=== PATIENT | female | born 1950 | race Caucasian/White ===

== ENCOUNTER 2019-02-12 14:33 | Emergency (ER) | payer MEDICARE, OTHER ==
[2019-02-12] MEDS ORDERED: Sodium Chloride 0.9% 10 ML Syringe FLUSH PRN (15:38)
[2019-02-12] MEDS ORDERED: Diltiazem 25 MG/5 ML SDV IVPUSH ONE (15:39)
--- NOTE | 2019-02-12 16:46 | EDM.PDOC ---
ED HPI GENERAL MEDICAL PROBLEM - General Chief Complaint: Cardiovascular Problem Stated Complaint: FAST HEART RATE,CHILLS Time Seen by Provider: 02/12/19 14:50 Source of Information: Reports: Patient History Limitations: Reports: No Limitations - History of Present Illness INITIAL COMMENTS - FREE TEXT/NARRATIVE: pt arrived with sustained atrial fib. She had very slight tightness in her chest and in her neck. She was not sob. She is on coumadin. She had a mitral valve replacement and she has had atrial fib on 2 or three occasions. Onset: Today, Other (pt developed the rhythm when she got up this am. ) Duration: Hour(s): Location: Reports: Chest Associated Symptoms: Reports: Shortness of Breath, Other ( slight chest tightness. ) - Related Data Allergies Allergy/AdvReac Type Severity Reaction Status Date / Time No Known Allergies Allergy Verified 02/12/19 14:54 Home Meds: Home Meds Levothyroxine Sodium [Synthroid] 125 mcg PO DAILY 02/12/19 [History] Metoprolol Succinate [Toprol XL 50mg] 50 mg PO BEDTIME 02/12/19 [History] Simvastatin [Zocor] 40 mg PO BEDTIME 02/12/19 [History] Warfarin Sodium 5 mg PO DAILY 02/12/19 [History] Past Medical History Cardiovascular History: Reports: Afib, High Cholesterol, Hypertension [employer] History: Reports: Endocrine/Metabolic History: Reports: Hypothyroidism - Past Surgical History Cardiovascular Surgical History: Reports: Valve Replacement Oncologic Surgical History: Reports: Biopsy of Breast, Lumpectomy Social & Family History - Tobacco Use Smoking Status *Q: Never Smoker - Caffeine Use Caffeine Use: Reports: Coffee - Recreational Drug Use Recreational Drug Use: No ED ROS GENERAL - Review of Systems Review Of Systems: See Below Constitutional: Reports: No Symptoms HEENT: Reports: No Symptoms Respiratory: Reports: Shortness of Breath Cardiovascular: Reports: Palpitations Endocrine: Reports: No Symptoms GI/Abdominal: Reports: No Symptoms : Reports: No Symptoms Musculoskeletal: Reports: No Symptoms Skin: Reports: No Symptoms Neurological: Reports: No Symptoms ED EXAM, GENERAL - Physical Exam Exam: See Below Free Text/Narrative:: pt arrived with history of a rapid heart beat and not feeling well. She had slight tightness in the chest and neck area. Exam Limited By: No Limitations General Appearance: Alert, Mild Distress Ears: Normal TMs Nose: Normal Inspection Throat/Mouth: Normal Inspection Head: Atraumatic Neck: Normal Inspection Respiratory/Chest: No Respiratory Distress Cardiovascular: Irregularly Irregular, Other ( rate was in the 903. ) GI/Abdominal: Soft, Non-Tender (Female) Exam: Deferred Rectal (Female) Exam: Deferred Back Exam: Normal Inspection Extremities: Normal Inspection Neurological: Alert, Oriented, Normal Cognition Psychiatric: Normal Affect Course - Vital Signs Last Recorded V/S: Last Vital Signs Temp 36.2 C 02/12/19 14:53 Pulse 74 02/12/19 17:38 Resp 19 02/12/19 17:38 BP 132/84 02/12/19 17:38 Pulse Ox 97 02/12/19 17:38 - Orders/Labs/Meds Orders: Active Orders 24 hr Category Date Time Status TROPONIN I [CHEM] Stat Lab 02/12/19 18:23 Ordered Diltiazem 125 mg Med 02/12/19 17:15 Active Sodium Chloride 0.9% [Normal Saline] 100 ml IV TITRATE Sodium Chloride 0.9% [Saline Flush] Med 02/12/19 15:38 Active 10 ml FLUSH ASDIRECTED PRN Saline Lock Insert [OM.PC] Routine Oth 02/12/19 15:38 Ordered Medication Orders Diltiazem HCl 125 mg/ Sodium (Chloride) 125 mls @ 5 mls/hr IV TITRATE TRAE; Protocol Stop: 02/13/19 17:16 Sodium Chloride (Saline Flush) 10 ml FLUSH ASDIRECTED PRN PRN Reason: Keep Vein Open Last Admin: 02/12/19 15:49 Dose: 10 ml Labs: Laboratory Tests 02/12/19 02/12/19 02/12/19 Range/Units 15:37 15:37 15:37 WBC 5.6 (4.5-11.0) K/uL RBC 4.89 (3.30-5.50) M/uL Hgb 14.0 (12.0-15.0) g/dL Hct 40.6 (36.0-48.0) % MCV 83 (80-98) fL MCH 29 (27-31) pg MCHC 35 (32-36) % Plt Count 221 (150-400) K/uL Neut % (Auto) 67 H (36-66) % Lymph % (Auto) 24 (24-44) % [place] % (Auto) 9 H (2-6) % Eos % (Auto) 1 L (2-4) % Baso % (Auto) 0 (0-1) % PT (9.5-12.0) sec INR (0.80-1.20) Sodium 142 (140-148) mmol/L Potassium 3.7 (3.6-5.2) mmol/L Chloride 105 (100-108) mmol/L Carbon Dioxide 28 (21-32) mmol/L Anion Gap 9.5 (5.0-14.0) mmol/L BUN 11 (7-18) mg/dL Creatinine 0.8 (0.6-1.0) mg/dL Est Cr Clr Drug Dosing 64.76 mL/min Estimated GFR (MDRD) > 60 (>60) Glucose 132 H (74-106) mg/dL Calcium 9.2 (8.5-10.1) mg/dL Magnesium 2.0 (1.8-2.4) mg/dL Total Bilirubin 1.6 H (0.2-1.0) mg/dL AST 24 (15-37) U/L ALT 30 (12-78) U/L Alkaline Phosphatase 55 (46-116) U/L Total Protein 7.2 (6.4-8.2) g/dL Albumin 4.0 (3.4-5.0) g/dL Globulin 3.2 (2.3-3.5) g/dL Albumin/Globulin Ratio 1.3 (1.2-2.2) TSH, Ultra Sensitive 0.588 (0.358-3.740) uIU/mL Urine Color (YELLOW) Urine Appearance (CLEAR) Urine pH (5.0-8.0) Ur Specific [place] (1.008-1.030) Urine Protein (NEGATIVE) mg/dL Urine Glucose (UA) (NEGATIVE) mg/dL Urine Ketones (NEGATIVE) mg/dL Urine Occult Blood (NEGATIVE) Urine Nitrite (NEGATIVE) Urine Bilirubin (NEGATIVE) Urine Urobilinogen (0.2-1.0) EU/dL Ur Leukocyte Esterase (NEGATIVE) Urine RBC (0-5) Urine WBC (0-5) Ur Epithelial Cells Amorphous Sediment Urine Bacteria Urine Mucus 02/12/19 02/12/19 Range/Units 17:08 17:11 WBC (4.5-11.0) K/uL RBC (3.30-5.50) M/uL Hgb (12.0-15.0) g/dL Hct (36.0-48.0) % MCV (80-98) fL MCH (27-31) pg MCHC (32-36) % Plt Count (150-400) K/uL Neut % (Auto) (36-66) % Lymph % (Auto) (24-44) % [place] % (Auto) (2-6) % Eos % (Auto) (2-4) % Baso % (Auto) (0-1) % PT 28.1 H (9.5-12.0) sec INR 2.76 H (0.80-1.20) Sodium (140-148) mmol/L Potassium (3.6-5.2) mmol/L Chloride (100-108) mmol/L Carbon Dioxide (21-32) mmol/L Anion Gap (5.0-14.0) mmol/L BUN (7-18) mg/dL Creatinine (0.6-1.0) mg/dL Est Cr Clr Drug Dosing mL/min Estimated GFR (MDRD) (>60) Glucose (74-106) mg/dL Calcium (8.5-10.1) mg/dL Magnesium (1.8-2.4) mg/dL Total Bilirubin (0.2-1.0) mg/dL AST (15-37) U/L ALT (12-78) U/L Alkaline Phosphatase (46-116) U/L Total Protein (6.4-8.2) g/dL Albumin (3.4-5.0) g/dL Globulin (2.3-3.5) g/dL Albumin/Globulin Ratio (1.2-2.2) TSH, Ultra Sensitive (0.358-3.740) uIU/mL Urine Color Yellow (YELLOW) Urine Appearance Clear (CLEAR) Urine pH 7.5 (5.0-8.0) Ur Specific [place] 1.015 (1.008-1.030) Urine Protein Negative (NEGATIVE) mg/dL Urine Glucose (UA) Negative (NEGATIVE) mg/dL Urine Ketones Negative (NEGATIVE) mg/dL Urine Occult Blood Negative (NEGATIVE) Urine Nitrite Negative (NEGATIVE) Urine Bilirubin Negative (NEGATIVE) Urine Urobilinogen 0.2 (0.2-1.0) EU/dL Ur Leukocyte Esterase Negative (NEGATIVE) Urine RBC 0-5 (0-5) Urine WBC 0-5 (0-5) Ur Epithelial Cells Few Amorphous Sediment Not seen Urine Bacteria Few Urine Mucus Not seen Meds: Medications Generic Name Dose Route Start Last Admin Trade Name Freq PRN Reason Stop Dose Admin Diltiazem HCl 125 mg/ Sodium 125 mls @ 5 mls/hr 02/12/19 17:15 Chloride IV 02/13/19 17:16 TITRATE TRAE Protocol 5 MG/HR Sodium Chloride 10 ml 02/12/19 15:38 02/12/19 15:49 Saline Flush FLUSH 10 ml ASDIRECTED PRN Administration Keep Vein Open Discontinued Medications Generic Name Dose Route Start Last Admin Trade Name Freq PRN Reason Stop Dose Admin Diltiazem HCl 10 mg 02/12/19 15:39 02/12/19 15:49 Diltiazem IVPUSH 02/12/19 15:40 10 mg ONETIME ONE Administration - Re-Assessments/Exams Free Text/Narrative Re-Assessment/Exam: 02/12/19 18:21 pt had normal labs. Nelson was given cardizem 10 mg iv and at this point she has converted back to a sinus rhythm. Departure - Departure Time of Disposition: 18:27 Disposition: Home, Self-Care 01 Condition: Fair Clinical Impression: Atrial fibrillation, H/O mitral valve replacement Referrals: Rita Garcia MD [Primary Care Provider] - Forms: ED Department Discharge Care Plan Goals: appt with Dr Garcia in 4-5 days, increae metoprol to 1/2 tab qam and 50mg q hs. - My Orders Last 24 Hours: My Active Orders 02/12/19 15:38 Sodium Chloride 0.9% [Saline Flush] 10 ml FLUSH ASDIRECTED PRN Saline Lock Insert [OM.PC] Routine 02/12/19 17:15 Diltiazem 125 mg Sodium Chloride 0.9% [Normal Saline] 100 ml IV TITRATE 02/12/19 18:23 TROPONIN I [CHEM] Stat - Assessment/Plan Last 24 Hours: My Active Orders 02/12/19 15:38 Sodium Chloride 0.9% [Saline Flush] 10 ml FLUSH ASDIRECTED PRN Saline Lock Insert [OM.PC] Routine 02/12/19 17:15 Diltiazem 125 mg Sodium Chloride 0.9% [Normal Saline] 100 ml IV TITRATE 02/12/19 18:23 TROPONIN I [CHEM] Stat
[2019-02-12] MEDS ORDERED: Diltiazem 125 MG in Sodium Chloride 0.9% 100 ML IV SCH (17:15)
[2019-02-12] MEDS ORDERED: Metoprolol Tartrate 25 MG Tab PO ONE (18:28)
== END 2019-02-12 18:55 | disposition home or self-care (01) ==
LOC: JP.ED 14:33
DX: I48.91 Unspecified atrial fibrillation (principal); I10 Essential (primary) hypertension; E03.9 Hypothyroidism, unspecified; E78.00 Pure hypercholesterolemia, unspecified; Z95.4 Presence of other heart-valve replacement; Z79.01 Long term (current) use of anticoagulants; Z79.899 Other long term (current) drug therapy
CPT/HCPCS: 36415; 80053; 81001; 83735; 84443; 84484; 85025; 85610; 96374; 99284; J3490

== ENCOUNTER 2020-11-01 14:09 | Emergency (ER) | payer MEDICARE, OTHER ==
--- NOTE | 2020-11-01 14:43 | EDM.PDOC ---
ED HPI GENERAL MEDICAL PROBLEM - General Chief Complaint: Cardiovascular Problem Stated Complaint: STRANGE FEELING IN CHEST Time Seen by Provider: 11/01/20 14:37 Source of Information: Reports: Patient, Family, RN Notes Reviewed History Limitations: Reports: No Limitations - History of Present Illness INITIAL COMMENTS - FREE TEXT/NARRATIVE: 69-year-old female presents emergency department today with discomfort in her chest, she states been going on for about a week will come and go she does have a known history of atrial fibrillation is anticoagulated on Coumadin, denies any nausea vomiting shortness of breath diaphoresis describes it as a buzzing sensation in her chest - Related Data Allergies Allergy/AdvReac Type Severity Reaction Status Date / Time No Known Allergies Allergy Verified 02/12/19 14:54 Home Meds: Home Meds Levothyroxine Sodium [Synthroid] 125 mcg PO DAILY 02/12/19 [History] Metoprolol Succinate [Toprol XL 50mg] 125 mg PO DAILY 02/12/19 [History] Simvastatin [Zocor] 40 mg PO BEDTIME 02/12/19 [History] Warfarin Sodium 5 mg PO DAILY 02/12/19 [History] Past Medical History Cardiovascular History: Reports: Afib, High Cholesterol, Hypertension [employer] History: Reports: Endocrine/Metabolic History: Reports: Hypothyroidism - Infectious Disease History Infectious Disease History: Reports: Chicken Pox - Past Surgical History Cardiovascular Surgical History: Reports: Valve Replacement Oncologic Surgical History: Reports: Biopsy of Breast, Lumpectomy Social & Family History - Tobacco Use Tobacco Use Status *Q: Never Tobacco User - Caffeine Use Caffeine Use: Reports: Coffee, Soda, Tea - Recreational Drug Use Recreational Drug Use: No ED ROS GENERAL - Review of Systems Review Of Systems: See Below Constitutional: Reports: No Symptoms HEENT: Reports: No Symptoms Respiratory: Reports: No Symptoms Cardiovascular: Reports: Chest Pain GI/Abdominal: Reports: No Symptoms ED EXAM, GENERAL - Physical Exam Exam: See Below Exam Limited By: No Limitations General Appearance: Alert, WD/WN, No Apparent Distress Respiratory/Chest: No Respiratory Distress, Lungs Clear, Normal Breath Sounds, No Accessory Muscle Use, Chest Non-Tender Cardiovascular: Regular Rate, Rhythm, No Murmur GI/Abdominal: Soft, Non-Tender #1 Interpretation EKG Date: 11/01/20 Time: 14:53 Rhythm: NSR Rate (Beats/Min): 58 [place]: Normal P-Wave: Present QRS: Normal ST-T: Normal QT: Normal Comparison: No Change Course - Vital Signs Last Recorded V/S: Last Vital Signs Temp 97.5 F 11/01/20 14:24 Pulse 58 L 11/01/20 15:31 Resp 20 11/01/20 15:31 BP 139/67 11/01/20 15:31 Pulse Ox 96 11/01/20 15:31 - Orders/Labs/Meds Orders: Active Orders 24 hr Category Date Time Status Cardiac Monitoring [RC] .As Directed Care 11/01/20 14:40 Active EKG Documentation Completion [RC] ASDIRECTED Care 11/01/20 14:41 Active EKG 12 Lead [EK] Stat Ther 11/01/20 14:41 Ordered Labs: Laboratory Tests 11/01/20 11/01/20 11/01/20 Range/Units 14:50 14:50 14:50 WBC 4.9 (4.5-11.0) K/uL RBC 4.60 (3.30-5.50) M/uL Hgb 13.1 (12.0-15.0) g/dL Hct 39.0 (36.0-48.0) % MCV 85 (80-98) fL MCH 29 (27-31) pg MCHC 34 (32-36) % Plt Count 230 (150-400) K/uL Neut % (Auto) 68.9 H (36-66) % Lymph % (Auto) 20.6 L (24-44) % [place] % (Auto) 8.1 H (2-6) % Eos % (Auto) 2.0 (2-4) % Baso % (Auto) 0.4 (0-1) % PT 28.1 H (9.5-12.0) sec INR 2.63 H (0.80-1.20) Sodium 142 (140-148) mmol/L Potassium 3.8 (3.6-5.2) mmol/L Chloride 104 (100-108) mmol/L Carbon Dioxide 26 (21-32) mmol/L Anion Gap 12.1 (5.0-14.0) mmol/L BUN 14 (7-18) mg/dL Creatinine 0.8 (0.6-1.0) mg/dL Est Cr Clr Drug Dosing 63.88 mL/min Estimated GFR (MDRD) > 60 (>60) Glucose 103 (74-106) mg/dL Calcium 8.7 (8.5-10.1) mg/dL Total Bilirubin 1.2 H (0.2-1.0) mg/dL AST 25 (15-37) U/L ALT 30 (12-78) U/L Alkaline Phosphatase 68 (46-116) U/L Troponin I < 0.017 (0.000-0.056) ng/mL Total Protein 6.9 (6.4-8.2) g/dL Albumin 3.9 (3.4-5.0) g/dL Globulin 3.0 (2.3-3.5) g/dL Albumin/Globulin Ratio 1.3 (1.2-2.2) Departure - Departure Time of Disposition: 15:38 Disposition: Home, Self-Care 01 Condition: Fair Clinical Impression: Atypical chest pain Instructions: Nonspecific Chest Pain, Adult Referrals: Evelyn Palencia MD [Primary Care Provider] - Forms: ED Department Discharge Additional Instructions: Please followup with your primary care provider in 3-5 days if not better, please call return to the emergency department with worsening of symptoms. Sepsis Event Note (ED) - Evaluation Sepsis Screening Result: No Definite Risk - Focused Exam Vital Signs: Vital Signs Temp Pulse Resp BP Pulse Ox 11/01/20 15:31 58 L 20 139/67 96 11/01/20 14:24 97.5 F 66 16 142/81 H 98 - My Orders Last 24 Hours: My Active Orders 11/01/20 14:40 Cardiac Monitoring [RC] .As Directed 11/01/20 14:41 EKG Documentation Completion [RC] ASDIRECTED EKG 12 Lead [EK] Stat - Assessment/Plan Last 24 Hours: My Active Orders 11/01/20 14:40 Cardiac Monitoring [RC] .As Directed 11/01/20 14:41 EKG Documentation Completion [RC] ASDIRECTED EKG 12 Lead [EK] Stat Plan: Assessment Acuity = acute Site and laterality = atypical chest pain Etiology = unknown Manifestations = none Location of injury = Home Lab values = CBC, CMP, troponin all within normal limits EKG demonstrates a sin us rhythm no ST elevations or depressions chest x-ray shows no acute process Plan Did review lab work chest x-ray EKG results with her she will follow-up with your primary care in the next 3 to 5 days if no improvement This note was dictated using [employer] voice recognition software please call with any questions on syntax or grammar.
--- NOTE | 2020-11-01 15:31 | CR ---
CHEST: 2 view CLINICAL HISTORY:Chest pain COMPARISON:2012 FINDINGS: Heart size and pulmonary vascularity are normal. Patient has had previous sternotomy. No infiltrate effusion or pneumothorax is seen. There is some mild interstitial prominence which is chronic. Impression: Chronic interstitial changes Previous sternotomy No acute cardiopulmonary process.
== END 2020-11-01 15:49 | disposition home or self-care (01) ==
LOC: JP.ED 14:09
DX: R07.89 Other chest pain (principal); I48.91 Unspecified atrial fibrillation; E78.00 Pure hypercholesterolemia, unspecified; I10 Essential (primary) hypertension; E03.9 Hypothyroidism, unspecified; Z79.01 Long term (current) use of anticoagulants; Z79.899 Other long term (current) drug therapy
CPT/HCPCS: 36415; 71046; 71046-26; 80053; 84484; 85025; 85610; 93005; 99285-25